=== PATIENT | male | born 1985 | race African-American/Black ===

== ENCOUNTER → 2016-12-29 | Day surgery (SDC) | payer BC ==
[~2016-12-29] MED LIST: NO MEDICATIONS
--- NOTE | ~2016-12-29 | EKG ---
PATIENT: HANK REILLY UNIT #: [id number] Ventricular Rate: 68 BPM Atrial Rate: 68 BPM P-R Interval: 138 ms QRS Duration: 98 ms Q-T Interval: 382 ms QTC Calculation(Bezet): 406 ms P Levan: 40 degrees Calculated R Levan: 49 degrees Calculated T Levan: 49 degrees Diagnosis Line: Normal sinus rhythm with sinus arrhythmia Diagnosis Line: Minimal voltage criteria for LVH, may be normal Diagnosis Line: variant Diagnosis Line: Borderline ECG Diagnosis Line: No previous ECGs available Diagnosis Line: Confirmed by RYAN STONE MD ([id number]) on 12/29/2016 Diagnosis Line: 10:12:58 PM INTERPRETING MD: CHASE BAZZI
--- NOTE | ~2016-12-29 | OR ---
Unit #: [id number] #: [id number] Patient: HANK REILLY [id number] [address] [place], [place] [address] [id number] MR#: [id number] NAME: HANK REILLY ROOM: Date of Procedure: 12/29/2016 Admission Date: 12/29/2016 Surgeon: Lynda Tafoya D.P.M. : 1985 Attending Physician: Lynda Tafoya D.P.M. Primary Care Physician: Yusef Regan M.D. OPERATIVE REPORT PREOPERATIVE DIAGNOSIS Hammertoe fifth toe, right foot. POSTOPERATIVE DIAGNOSIS Hammertoe fifth toe, right foot. PROCEDURE PERFORMED Derotational arthroplasty on the fifth toe, right foot. ANESTHESIA General with local. INDICATIONS FOR PROCEDURE The patient presented to the office complaining of chronic pain in the fifth toe and stated it was getting worse. He stated it was becoming more difficult to wear clothes he use and he was experiencing an increasing pain with activities. He stated he had exhausted conservative care consisting of modified shoes, pads, debridements with little to no relief. He requested more prominent more means of correction. He was counseled on outpatient surgery. He was made aware of possible complications of surgery including but not limited to overcorrection, undercorrection, delayed healing, infection, hematoma, seroma, need for future surgery, floppy toe. He elected to have outpatient procedure performed. No guarantees or assurances were implied or expressed. DESCRIPTION OF PROCEDURE The patient underwent IV sedation, and right foot and ankle were prepped in the usual aseptic manner and ankle tourniquet was inflated to 250 mmHg. A dorsal derotational elliptical incision was made on the dorsolateral aspect of the fifth toe. The skin was underscored and removed and arthroplasty was performed on the PIP joint. The area was flushed with copious amounts of saline solution and the extensor tendon was reapproximated using 4-0 Vicryl in simple interrupted fashion. Skin was reapproximated using 5-0 nylon in simple interrupted fashion. A dry sterile compressive dressing was applied to the foot. The tourniquet was released, all digits returned to normal coloration within several seconds of its release. The patient apparently tolerated the procedure well. He was brought back to recovery room, where he were given written as well as oral instructions. Dictated by... Unit #: [id number] #: [id number] Patient: HANK REILLY Humberto Mishra/murray TD: 01/05/2017 20:29 JOB #: [id number] OPERATIVE REPORT Page 1 of 1 X Fatimah Tafoya PROCEDURE OPERATIVE NOTE
[2016-12-29 11:51] LABS: BASOPHIL% 0.5 % (0-2.5); EOSINOPHIL% 0.7 % (0.0-7.0); HEMATOCRIT 45.5 % (38.0-50.0); HEMOGLOBIN 15.1 gm/dL (13.0-16.0); LYMPHOCYTE# 2.8 X10e3 (1.0-3.5); MEAN CELL VOLUME 83.7 FL (83-96); MEAN CORPUSCULAR HEMOGLOBIN 27.9 PG (28-34); MEAN CORPUSCULAR HGB CONC 33.3 g/dL (30-36); MEAN PLATELET VOLUME 7.9 FL (6.5-11.5); MONOCYTE# 0.6 X10e3 (0-1.0); MONOCYTE% 9.2 % (3.0-12.0); NEUTROPHIL# 3.3 X10e3 (1.5-7.1); NEUTROPHIL% 48.6 % (40-75); PLATELET COUNT 245 X10e3 (140-420); RED BLOOD COUNT 5.43 X10e (3.90-5.60); RED CELL DISTRIBUTION WIDTH 15.7 % (11.0-15.5); WHITE BLOOD COUNT 6.8 X10e3 (4.0-10.5)
[2016-12-29 11:52] LABS: DIFF IND NO
[2016-12-29 12:17] LABS: CALCIUM SERUM 9.3 mg/dL (8.4-10.2); GLOM FILT RATE Estimated 115.7 mL/min (>60); POTASSIUM 3.6 mmol/L (3.5-5.1)
== END | disposition home or self-care (01) ==
LOC: CSUR 11:15
PROVIDERS: Podiatrist Foot & Ankle Surgery
DX: M20.41 Other hammer toe(s) (acquired), right foot (principal); F17.210 Nicotine dependence, cigarettes, uncomplicated; Z98.890 Other specified postprocedural states
CPT/HCPCS: 80048; 85025; 93005; J0690; J1170; J1885; J2250; J3010; J3301